=== PATIENT | male | born 1960 | race Caucasian/White ===

== ENCOUNTER → 2018-06-05 07:10 | Outpatient (CLI) | payer OTHER, SELFPAY ==
[2018-06-05 08:23] LABS: Add Manual Diff / Slide Review NO; Basophils Percent Auto 0.5 % (0-2); Eosinophils Percent Auto 1.4 % (2-4); Hematocrit 46.4 % (41-53); Lymphocytes Percent Auto 31.4 % (25-40); Mean Corpuscular HGB Conc 34.4 % (30-36); Mean Corpuscular Hemoglobin 33.9 PG (26-34); Mean Corpuscular Volume 98.4 fL (80-100); Monocytes Percent Auto 10.3 % (3-14); Neutrophils Absolute Auto 2800 /uL (1500-7000); Neutrophils Percent Auto 56.4 % (50-75); Platelet Count 117 X10^3/uL (150-400); Red Blood Cell Count 4.71 X10^6/uL (4.5-5.9); Red Cell Distribution Width 12.7 % (11.6-14.8)
[2018-06-05 08:29] LABS: Alanine Aminotransferase 44 IU/L (21-72); Albumin 4.3 g/dL (3.5-5.0); Albumin Globulin Ratio 1.7 (1.0-2.8); Alkaline Phosphatase 51 U/L (38-126); Aspartate Aminotransferase 17 IU/L (17-59); Bilirubin Total 0.5 mg/dL (0.2-1.3); Blood Urea Nitrogen 28 mg/dL (9-20); Carbon Dioxide 27 mmol/L (22-32); Chloride 105 mmol/L (98-107); Cholesterol 213 mg/dL (140-199); Estimated Glomerular Filt Rate > 60.0 mL/min (>60); Globulin 2.6 g/dL (1.7-4.1); Glucose 97 mg/dL (70-100); HDL Cholesterol 45 mg/dL (40-60); HEMOLYSIS 24 (0-50); LDL Cholesterol Calculated 136 mg/dL (<100); Potassium 4.5 mmol/L (3.4-5.1); Sodium 146 mmol/L (137-145); Total Protein 6.9 g/dL (6.3-8.2); Triglycerides 159 mg/dL (35-150)
[2018-06-05 09:12] LABS: Thyroid Stimulating Hormone 2.74 uIU/mL (0.47-4.68)
== END ==
PROVIDERS: PCP Family Medicine; Visit Provider Family Medicine
DX: E78.5 Hyperlipidemia, unspecified (principal); I10 Essential (primary) hypertension
CPT/HCPCS: 36415; 80053; 80061; 84153; 84443; 85025

== ENCOUNTER → 2018-07-10 08:10 | Outpatient (CLI) | payer OTHER, SELFPAY ==
--- NOTE | 2018-07-10 09:24 | PM.TREADMILL ---
Cardiac Stress Test Report Referral & Results Date Patient Seen: 07/10/18 Requesting provider: Michele Regan Indication: Strong family history Rest ECG: Unremarkable Procedure Note: Today following both written and verbal informed consent, the patient was exercised according to a standard Nehemias protocol. The patient exercised for a total of 12 min 34 sec achieving a maximum heart rate of 144. Patient's maximum systolic blood pressure was 220 . This was an estimated 12.8 MET's. With exercise patient did have nonspecific ST-T segment changes primarily upsloping ST segment drooping or minimal depression in inferior and lateral leads that rapidly resolved (in less than 40 sec) with cessation of exercise the suggesting nonischemic nature to these changes Rare PVCs were identified Normal heart rate response to exercise Patient was somewhat hypertensive throughout Functional aerobic impairment was off scale but estimated-40% on the active scale Impression: Nonspecific ST changes not likely to be ischemic. I would interpret this as a normal exam especially given that patient's exercise capacity is 140% of normal. Worse case , this would be an extremely low risk study. He however is hypertensive and consideration for addressing this separately should be made As always, clinical correlation suggested Please note: Actual ECG tracings can be found in the PACS system.
== END ==
PROVIDERS: Family Provider Family Medicine; PCP Family Medicine; Visit Provider Family Medicine
DX: I10 Essential (primary) hypertension (principal); Z82.49 Family history of ischemic heart disease and other diseases of the circulatory system
CPT/HCPCS: 93016; 93017; 93018

== ENCOUNTER 2018-12-15 13:27 | Emergency (ER) | payer OTHER, SELFPAY ==
[2018-12-15 13:36] VITALS: BP 170/80; PULSE 85; RESP 18; TEMP 37.1; O2SAT 96; BMI 29.7
--- NOTE | 2018-12-15 13:40 | ED.BACK ---
HPI - Back Pain/Injury <AMARI Franco - Last Filed: 12/15/18 20:53> General Chief Complaint: Back Pain/Injury Stated Complaint: THINKS HE HAS KIDNEY STONES Time Seen by Provider: 12/15/18 13:30 Source: patient Mode of arrival: ambulatory Limitations: no limitations History of Present Illness HPI Narrative: 58-year-old male presents emergency department today complaining of constant 4/10 a stabbing right sided back pain that radiates to his right groin, down to his right testicle, and down his hip. States pain started 1 week ago and now has progressively worsened and now is consistent. Associated right hip numbness, nausea, and night sweats. States movement does not affect pain, he has tried ibuprofen and Tylenol and has had no relief. Denies headaches, vision changes, dizziness, syncope, chest pain, shortness of breath, vomiting, blood in the urine, penile discharge, or sore changes. Related Data Previous Rx's Medication Instructions Recorded pravastatin 10 mg tablet 10 mg PO DAILY #90 tab 06/17/18 sildenafil (antihypertensive) 20 20 mg PO DAILY #100 tab 06/17/18 mg tablet Allergies Allergy/AdvReac Type Severity Reaction Status Date / Time No Known Drug Allergies Allergy Verified 12/16/18 10:58 Review of Systems <AMARI Franco - Last Filed: 12/15/18 20:53> Review of Systems REVIEW OF SYSTEMS: GENERAL: Denies fever. HENT: No head trauma, hearing loss or sore throat. EYES: No loss of vision, double vision, eye pain, or irritation. CARDIOVASCULAR: No chest pain or syncope. RESPIRATORY: No shortness of breath or cough. GASTROINTESTINAL: Complains of right groin pain, see HPI. GENITOURINARY: Complains of right flank pain, with HPI. MUSCULOSKELETAL: No pain, weakness, or deformities. Complains of right leg pain HPI. INTEGUMENTARY: No rash, lesions, or pruritus. NEURO: No tingling, memory loss, or confusion. Complains of numbness to right side of his leg, see HPI. PSYCH: No behavior or mood changes. PFSH <AMARI Franco - Last Filed: 12/15/18 20:53> Medical History Hearing deficit (Chronic) Surgical History Anesthesia (Resolved) Status post knee surgery (~2005) Status post knee surgery (~2011) Family History Father Age: 85 Heart disease Social History Smoking Status: Never smoker Family History Father Age: 85 Heart disease Social History Smoking Status: Never smoker Exam <AMARI Franco - Last Filed: 12/15/18 20:53> Initial Vital Signs Initial Vital Signs: Vital Signs Temperature 98.7 F 12/15/18 13:36 Pulse Rate 85 12/15/18 13:36 Respiratory Rate 18 12/15/18 13:36 Blood Pressure 170/80 H 12/15/18 13:36 Pulse Oximetry 96 12/15/18 13:36 PHYSICAL EXAMINATION: GENERAL: Well groomed, alert, and cooperative. Answers questions promptly and appropriately. Vital signs noted. HENT: Normocephalic, atraumatic. EYES: Conjunctiva pink, sclera white, no periorbital swelling. CHEST: Normal to inspection and without deformities. CARDIOVASCULAR: S1 and S2 sounds normal. Regular rate and rhythm, no murmurs, clicks, or bruits. No pedal edema. RESPIRATORY: Normal respiratory rate, trachea midline, airway patent. No stridor, nasal flaring or accessory muscle use. Lungs are clear in all calles without wheeze, rhonchi, or crackles. GASTROINTESTINAL: Bowel sounds normoactive. Abdomen is soft and non-tender. No organomegaly. : No flank tenderness to palpation, no tenderness to palpation of right groin. No rashes or swelling. MUSCULOSKELETAL: Normal gait and coordination. Equal tone and mass bilaterally. No tenderness to palpation of right hip or leg. Straight leg test did not increased pain. Slight decrease to light sensation over right hip and buttocks. EXTREMITIES: CMS intact. Moves all extremities, lower extremities equal in strength bilaterally. SKIN: Warm, dry, soft, appropriate color for ethnicity. No lesions, rashes, or wounds. NEURO: Alert and Oriented X 3. Good coordination. No ataxia, or sensory deficits, or cognitive issues. PSYCH: Appropriate affect and mood. <Matilde Alvarenga DO - Last Filed: 12/17/18 07:52> Initial Vital Signs Initial Vital Signs: Vital Signs Temperature 98.7 F 12/15/18 13:36 Pulse Rate 85 12/15/18 13:36 Respiratory Rate 18 12/15/18 13:36 Blood Pressure 170/80 H 12/15/18 13:36 Pulse Oximetry 96 12/15/18 13:36 Course <AMARI Franco - Last Filed: 12/15/18 20:53> Course Narrative: Spoke with patient about options to try a steroid pack to decrease inflammation as his pain may likely be caused by sciatic, patient opted not to have this prescription filled. Orders Ordered: Discontinued Medications Ketorolac Tromethamine (Toradol) 30 mg IM NOW ONE Stop: 12/15/18 15:35 Last Admin: 12/15/18 16:12 Dose: 30 mg Reevaluation(s) Reevaluation #1: Patient notes slight decrease in pain with Toradol. Consultations Consultation #1: Case extensively discussed with Dr. Alvarenga. Vital Signs - 8 hr 12/15/18 13:36 12/15/18 16:15 Temperature 98.7 F Pulse Rate 85 58 L Respiratory Rate 18 16 Blood Pressure 170/80 H Blood Pressure [Right Arm] 149/86 H Pulse Oximetry 96 98 <Matilde Alvarenga DO - Last Filed: 12/17/18 07:52> Orders Ordered: Discontinued Medications Ketorolac Tromethamine (Toradol) 30 mg IM NOW ONE Stop: 12/15/18 15:35 Last Admin: 12/15/18 16:12 Dose: 30 mg Vital Signs - 8 hr 12/15/18 13:36 12/15/18 16:15 Temperature 98.7 F Pulse Rate 85 58 L Respiratory Rate 18 16 Blood Pressure 170/80 H Blood Pressure [Right Arm] 149/86 H Pulse Oximetry 96 98 MDM - Back Pain/Injury <AMARI Franco - Last Filed: 12/15/18 20:53> Medical Records Attestation: I reviewed the patient's medical records. Lab Data Attestation: I reviewed the patient's lab results. Result diagrams: 12/15/18 13:40 12/15/18 13:40 Lab Results 12/15/18 12/15/18 12/15/18 Range/Units 13:40 13:40 15:05 WBC 5.7 (4.5-11.0) X10^3/uL RBC 5.00 (4.5-5.9) X10^6/uL Hgb 17.1 (13.5-17.5) g/dL Hct 49.0 (41-53) % MCV 97.9 (80-100) fL MCH 34.2 H (26-34) PG MCHC 35.0 (30-36) % RDW 13.0 (11.6-14.8) % Plt Count 114 L (150-400) X10^3/uL Neut % (Auto) 67.2 (50-75) % Lymph % (Auto) 24.2 L (25-40) % [place] % (Auto) 7.2 (3-14) % Eos % (Auto) 1.0 L (2-4) % Baso % (Auto) 0.4 (0-2) % Neut # (Auto) 3800 (7690-8881) /uL Lymph # (Auto) 1400 (1611-0611) /uL [place] # (Auto) 400 (0-900) /uL Eos # (Auto) 100 (0-450) /uL Baso # (Auto) 0 (0-100) /uL Sodium 142 (137-145) mmol/L Potassium 3.9 (3.4-5.1) mmol/L Chloride 104 (98-107) mmol/L Carbon Dioxide 27 (22-32) mmol/L BUN 13 (9-20) mg/dL Creatinine 0.90 (0.66-1.25) mg/dL Estimated GFR > 60.0 (>60) mL/min BUN/Creatinine Ratio 14.4 (6-22) Glucose 120 H (80-110) mg/dL Calcium 9.7 (8.4-10.2) mg/dL Total Bilirubin 0.9 (0.2-1.3) mg/dL AST 19 (17-59) IU/L ALT 60 (21-72) IU/L Alkaline Phosphatase 58 (38-126) U/L Total Protein 7.7 (6.3-8.2) g/dL Albumin 4.8 (3.5-5.0) g/dL Globulin 2.9 (1.7-4.1) g/dL Albumin/Globulin Ratio 1.7 (1.0-2.8) Lipase 113 (23-300) U/L Ur Chlamydia DNA (PCR) Not detected N gonorrhoeae DNA (PCR) Not detected Urine Dip Bedside Urine Glucose Negative Bedside Urine Bilirubin - Negative Bedside Urine Ketone - Negative Urine Specific Coleman 1.015 Bedside Urine Occult Blood - Negative Bedside Urine pH 6.0 Bedside Urine Protein - Negative Bedside Urine Urobilinogen - Negative Bedside Urine Nitrite - Negative Bedside Urine Leukocytes - Negative Esterase Imaging Data KUB CT: Radiologist's impression: [address] [id number] [address] Scan Report Signed Patient: Anmol Eastman LMR#: [id number] : 9Acct:[id number] Age/Sex: 58 / MDate of Service: 12/15/18 Loc: ED Accession Number: [id number] Procedure: CT kidney ureter bladder (KUB) Ordering Provider: Zainab Lund PROCEDURE: CT KIDNEY URETER BLADDER (KUB) INDICATIONS: Right groin flank pain x1 week TECHNIQUE: Noncontrast 5 mm thick sections acquired from the diaphragms to the symphysis. 5 mm thick coronal and sagittal reformats were then performed. For radiation dose reduction, the following was used: automated exposure control, adjustment of mA and/or kV according to patient size. COMPARISON: None. FINDINGS: Image quality: Excellent. Lung bases: Lung bases are clear. Heart size is normal. Urinary system: Both kidneys are normal in size. No kidney stones. No hydronephrosis or perinephric fat stranding. Both ureters appear non-dilated throughout their expected courses. Bladder wall thickness is normal; no calcified bladder stones. Other solid organs: Liver is normal in size. Gallbladder is partially collapsed at the time of this study. Pancreas is normal in contours. Spleen is normal in size. No adrenal nodules. Peritoneum and bowel: Unenhanced bowel loops demonstrate normal wall thickness and caliber. No free fluid or air. Incidental note is made of a normal-appearing appendix. Diverticulosis is seen, without findings of active diverticulitis. Nodes and vessels: No retroperitoneal or mesenteric adenopathy by size criteria. Aorta and inferior vena cava are normal in caliber. Abdominal wall: No ventral hernias. Pelvis: No free pelvic fluid. No inguinal adenopathy. Patulous bilateral inguinal canals are seen. Bones: Remote, healed right posterior rib fractures are seen. No suspicious bony lesions. No vertebral body compression fractures. Degenerative changes are seen, which are most prominent at the L4-L5 level. IMPRESSION: No stones or hydronephrosis can be seen. Incidental note is made of: Diverticulosis is seen, without findings of active diverticulitis. Normal appendix Focal L4-L5 degenerative change Patulous bilateral inguinal canals Dictated by: Shaun Grant M.D. on 12/15/2018 at 13:01 Approved by: Shaun Grant M.D. on 12/15/2018 at 13:03 [facility] Narrative Medical decision making narrative: I suspect his pain is due to sciatica due to location of pain starting in the back and radiating to his right buttock, complains of right hip numbness, incidental finding of L4 and L5 degenerative changes, and negative laboratory workup. Less likely kidney stone due to negative KUB and negative urinary analysis. Less likely acute infection due to lack of fever, normal white blood cell count, no acute findings on exam such as abdominal tenderness. Less likely testicle torsion due to lack of testicle swelling and extreme pain, less likely prostatitis due to lack of fever and bacteria present in the urine. Strict return precautions discussed and follow-up instructions given. <Matilde Alvarenga, - Last Filed: 12/17/18 07:52> Lab Data Lab Results 12/15/18 12/15/18 12/15/18 Range/Units 13:40 13:40 15:05 WBC 5.7 (4.5-11.0) X10^3/uL RBC 5.00 (4.5-5.9) X10^6/uL Hgb 17.1 (13.5-17.5) g/dL Hct 49.0 (41-53) % MCV 97.9 (80-100) fL MCH 34.2 H (26-34) PG MCHC 35.0 (30-36) % RDW 13.0 (11.6-14.8) % Plt Count 114 L (150-400) X10^3/uL Neut % (Auto) 67.2 (50-75) % Lymph % (Auto) 24.2 L (25-40) % [place] % (Auto) 7.2 (3-14) % Eos % (Auto) 1.0 L (2-4) % Baso % (Auto) 0.4 (0-2) % Neut # (Auto) 3800 (9964-9145) /uL Lymph # (Auto) 1400 (6091-3861) /uL [place] # (Auto) 400 (0-900) /uL Eos # (Auto) 100 (0-450) /uL Baso # (Auto) 0 (0-100) /uL Sodium 142 (137-145) mmol/L Potassium 3.9 (3.4-5.1) mmol/L Chloride 104 (98-107) mmol/L Carbon Dioxide 27 (22-32) mmol/L BUN 13 (9-20) mg/dL Creatinine 0.90 (0.66-1.25) mg/dL Estimated GFR > 60.0 (>60) mL/min BUN/Creatinine Ratio 14.4 (6-22) Glucose 120 H (80-110) mg/dL Calcium 9.7 (8.4-10.2) mg/dL Total Bilirubin 0.9 (0.2-1.3) mg/dL AST 19 (17-59) IU/L ALT 60 (21-72) IU/L Alkaline Phosphatase 58 (38-126) U/L Total Protein 7.7 (6.3-8.2) g/dL Albumin 4.8 (3.5-5.0) g/dL Globulin 2.9 (1.7-4.1) g/dL Albumin/Globulin Ratio 1.7 (1.0-2.8) Lipase 113 (23-300) U/L Ur Chlamydia DNA (PCR) Not detected N gonorrhoeae DNA (PCR) Not detected Urine Dip Bedside Urine Glucose Negative Bedside Urine Bilirubin - Negative Bedside Urine Ketone - Negative Urine Specific Coleman 1.015 Bedside Urine Occult Blood - Negative Bedside Urine pH 6.0 Bedside Urine Protein - Negative Bedside Urine Urobilinogen - Negative Bedside Urine Nitrite - Negative Bedside Urine Leukocytes - Negative Esterase Discharge Plan Departure Patient Disposition: Home Clinical Impression: Acute flank pain Sciatica Qualifiers: Laterality: right Qualified Code(s): M54.31 - Sciatica, right side Discharge Date/Time: 12/15/18 16:38 Interventions: ED Discharge Assessment Last Done: 12/15/18 16:38 Instructions: DI for Sciatica Activity Restrictions/Additional Instructions: Thank you for entrusting me with your care today. As discussed, your blood work and CT scan are negative for any acute findings. However, incidentally we found that your platelet count was slightly decreased, and you do have diverticulosis, these are not concerning at this time but something to follow up on later if problems arise. It is possible that your pain may be caused by a pinched nerve or sciatica. I recommend following up with your primary care provider in a few days to discuss further testing if needed. Please return to the emergency department if he develops chest pain, shortness of breath, high fevers, uncontrollable vomiting, abdominal pain, swelling or testicles, or syncope. Prescriptions: No Action pravastatin 10 mg tablet 10 mg PO DAILY Qty: 90 RF: 3 sildenafil (antihypertensive) 20 mg tablet 20 mg PO DAILY Qty: 100 RF: 8 Referrals: Michele Regan MD [Primary Care Provider] - <Matilde Alvarenga DO - Last Filed: 12/17/18 07:52> Cosign ED Attending Pauloature Attestation: I was immediately available in the department for consultation. Patient case initially was concerning for kidney based on patient's description of pain coming from the right flank and radiating towards the hip and down into the testicle. CT, lab imaging and urine testing do not show any signs of stone. Patient also had some complaint of numbness just over the hip region. Additional imaging shows some degenerative changes but no acute findings. Suspect patient may be having more of a sciatica type pain. This documentation has been reviewed and I agree with assessment and plan. Supervised by Matilde Alvarenga DO
[2018-12-15 13:46] LABS: Add Manual Diff / Slide Review NO; Basophils Absolute Auto 0 /uL (0-100); Basophils Percent Auto 0.4 % (0-2); Eosinophils Absolute Auto 100 /uL (0-450); Hemoglobin 17.1 g/dL (13.5-17.5); Lymphocytes Absolute Auto 1400 /uL (1100-4500); Lymphocytes Percent Auto 24.2 % (25-40); Mean Corpuscular Hemoglobin 34.2 PG (26-34); Mean Corpuscular Volume 97.9 fL (80-100); Monocytes Absolute Auto 400 /uL (0-900); Monocytes Percent Auto 7.2 % (3-14); Neutrophils Absolute Auto 3800 /uL (1500-7000); Neutrophils Percent Auto 67.2 % (50-75); Platelet Count 114 X10^3/uL (150-400); White Blood Cell Count 5.7 X10^3/uL (4.5-11.0)
--- NOTE | 2018-12-15 13:46 | ED_ITS ---
HPI - Back Pain/Injury <AMARI Franco - Last Filed: 12/15/18 20:53> General Chief Complaint: Back Pain/Injury Stated Complaint: THINKS HE HAS KIDNEY STONES Time Seen by Provider: 12/15/18 13:30 Source: patient Mode of arrival: ambulatory Limitations: no limitations History of Present Illness HPI Narrative: 58-year-old male presents emergency department today complaining of constant 4/10 a stabbing right sided back pain that radiates to his right groin, down to his right testicle, and down his hip. States pain started 1 week ago and now has progressively worsened and now is consistent. Associated right hip numbness, nausea, and night sweats. States movement does not affect pain, he has tried ibuprofen and Tylenol and has had no relief. Denies headaches, vision changes, dizziness, syncope, chest pain, shortness of breath, vomiting, blood in the urine, penile discharge, or sore changes. Related Data Previous Rx's Medication Instructions Recorded pravastatin 10 mg tablet 10 mg PO DAILY #90 tab 06/17/18 sildenafil (antihypertensive) 20 20 mg PO DAILY #100 tab 06/17/18 mg tablet Allergies Allergy/AdvReac Type Severity Reaction Status Date / Time No Known Drug Allergies Allergy Verified 12/16/18 10:58 Review of Systems <AMARI Franco - Last Filed: 12/15/18 20:53> Review of Systems REVIEW OF SYSTEMS: GENERAL: Denies fever. HENT: No head trauma, hearing loss or sore throat. EYES: No loss of vision, double vision, eye pain, or irritation. CARDIOVASCULAR: No chest pain or syncope. RESPIRATORY: No shortness of breath or cough. GASTROINTESTINAL: Complains of right groin pain, see HPI. GENITOURINARY: Complains of right flank pain, with HPI. MUSCULOSKELETAL: No pain, weakness, or deformities. Complains of right leg pain HPI. INTEGUMENTARY: No rash, lesions, or pruritus. NEURO: No tingling, memory loss, or confusion. Complains of numbness to right side of his leg, see HPI. PSYCH: No behavior or mood changes. PFSH <AMARI Franco - Last Filed: 12/15/18 20:53> Medical History Hearing deficit (Chronic) Surgical History Anesthesia (Resolved) Status post knee surgery (~2005) Status post knee surgery (~2011) Family History Father Age: 85 Heart disease Social History Smoking Status: Never smoker Family History Father Age: 85 Heart disease Social History Smoking Status: Never smoker Exam <AMARI Franco - Last Filed: 12/15/18 20:53> Initial Vital Signs Initial Vital Signs: Vital Signs Temperature 98.7 F 12/15/18 13:36 Pulse Rate 85 12/15/18 13:36 Respiratory Rate 18 12/15/18 13:36 Blood Pressure 170/80 H 12/15/18 13:36 Pulse Oximetry 96 12/15/18 13:36 PHYSICAL EXAMINATION: GENERAL: Well groomed, alert, and cooperative. Answers questions promptly and appropriately. Vital signs noted. HENT: Normocephalic, atraumatic. EYES: Conjunctiva pink, sclera white, no periorbital swelling. CHEST: Normal to inspection and without deformities. CARDIOVASCULAR: S1 and S2 sounds normal. Regular rate and rhythm, no murmurs, c licks, or bruits. No pedal edema. RESPIRATORY: Normal respiratory rate, trachea midline, airway patent. No stridor, nasal flaring or accessory muscle use. Lungs are clear in all calles without wheeze, rhonchi, or crackles. GASTROINTESTINAL: Bowel sounds normoactive. Abdomen is soft and non-tender. No organomegaly. : No flank tenderness to palpation, no tenderness to palpation of right g roin. No rashes or swelling. MUSCULOSKELETAL: Normal gait and coordination. Equal tone and mass bilaterally. No tenderness to palpation of right hip or leg. Straight leg test did not increased pain. Slight decrease to light sensation over right hip and buttocks. EXTREMITIES: CMS intact. Moves all extremities, lower extremities equal in strength bilaterally. SKIN: Warm, dry, soft, appropriate color for ethnicity. No lesions, rashes, or wounds. NEURO: Alert and Oriented X 3. Good coordination. No ataxia, or sensory deficits, or cognitive issues. PSYCH: Appropriate affect and mood. <Matilde Alvarenga DO - Last Filed: 12/17/18 07:52> Initial Vital Signs Initial Vital Signs: Vital Signs Temperature 98.7 F 12/15/18 13:36 Pulse Rate 85 12/15/18 13:36 Respiratory Rate 18 12/15/18 13:36 Blood Pressure 170/80 H 12/15/18 13:36 Pulse Oximetry 96 12/15/18 13:36 Course <AMARI Franco - Last Filed: 12/15/18 20:53> Course Narrative: Spoke with patient about options to try a steroid pack to decrease inflammation as his pain may likely be caused by sciatic, patient opted not to have this prescription filled. Orders Ordered: Discontinued Medications Ketorolac Tromethamine (Toradol) 30 mg IM NOW ONE Stop: 12/15/18 15:35 Last Admin: 12/15/18 16:12 Dose: 30 mg Reevaluation(s) Reevaluation #1: Patient notes slight decrease in pain with Toradol. Consultations Consultation #1: Case extensively discussed with Dr. Alvarenga. Vital Signs - 8 hr 12/15/18 13:36 12/15/18 16:15 Temperature 98.7 F Pulse Rate 85 58 L Respiratory Rate 18 16 Blood Pressure 170/80 H Blood Pressure [Right Arm] 149/86 H Pulse Oximetry 96 98 <Matilde Alvarenga DO - Last Filed: 12/17/18 07:52> Orders Ordered: Discontinued Medications Ketorolac Tromethamine (Toradol) 30 mg IM NOW ONE Stop: 12/15/18 15:35 Last Admin: 12/15/18 16:12 Dose: 30 mg Vital Signs - 8 hr 12/15/18 13:36 12/15/18 16:15 Temperature 98.7 F Pulse Rate 85 58 L Respiratory Rate 18 16 Blood Pressure 170/80 H Blood Pressure [Right Arm] 149/86 H Pulse Oximetry 96 98 MDM - Back Pain/Injury <AMARI Franco - Last Filed: 12/15/18 20:53> Medical Records Attestation: I reviewed the patient's medical records. Lab Data Attestation: I reviewed the patient's lab results. Result diagrams: 12/15/18 13:40 12/15/18 13:40 Lab Results 12/15/18 12/15/18 12/15/18 Range/Units 13:40 13:40 15:05 WBC 5.7 (4.5-11.0) X10^3/uL RBC 5.00 (4.5-5.9) X10^6/uL Hgb 17.1 (13.5-17.5) g/dL Hct 49.0 (41-53) % MCV 97.9 (80-100) fL MCH 34.2 H (26-34) PG MCHC 35.0 (30-36) % RDW 13.0 (11.6-14.8) % Plt Count 114 L (150-400) X10^3/uL Neut % (Auto) 67.2 (50-75) % Lymph % (Auto) 24.2 L (25-40) % Galax % (Auto) 7.2 (3-14) % Eos % (Auto) 1.0 L (2-4) % Baso % (Auto) 0.4 (0-2) % Neut # (Auto) 3800 (0771-3004) /uL Lymph # (Auto) 1400 (2689-2131) /uL Galax # (Auto) 400 (0-900) /uL Eos # (Auto) 100 (0-450) /uL Baso # (Auto) 0 (0-100) /uL Sodium 142 (137-145) mmol/L Potassium 3.9 (3.4-5.1) mmol/L Chloride 104 (98-107) mmol/L Carbon Dioxide 27 (22-32) mmol/L BUN 13 (9-20) mg/dL Creatinine 0.90 (0.66-1.25) mg/dL Estimated GFR > 60.0 (>60) mL/min BUN/Creatinine Ratio 14.4 (6-22) Glucose 120 H (80-110) mg/dL Calcium 9.7 (8.4-10.2) mg/dL Total Bilirubin 0.9 (0.2-1.3) mg/dL AST 19 (17-59) IU/L ALT 60 (21-72) IU/L Alkaline Phosphatase 58 (38-126) U/L Total Protein 7.7 (6.3-8.2) g/dL Albumin 4.8 (3.5-5.0) g/dL Globulin 2.9 (1.7-4.1) g/dL Albumin/Globulin Ratio 1.7 (1.0-2.8) Lipase 113 (23-300) U/L Ur Chlamydia DNA (PCR) Not detected N gonorrhoeae DNA (PCR) Not detected Urine Dip Bedside Urine Glucose Negative Bedside Urine Bilirubin - Negative Bedside Urine Ketone - Negative Urine Specific [place] 1.015 Bedside Urine Occult Blood - Negative Bedside Urine pH 6.0 Bedside Urine Protein - Negative Bedside Urine Urobilinogen - Negative Bedside Urine Nitrite - Negative Bedside Urine Leukocytes - Negative Esterase Imaging Data KUB CT: Radiologist's impression: [address] [address] [address] Scan Report Signed Patient: Anmol Eastman LMR#: [id number] : 9Acct:[id number] Age/Sex: 58 / MDate of Service: 12/15/18 Loc: ED Accession Number: [id number] Procedure: CT kidney ureter bladder (KUB) Ordering Provider: Zainab Lund PROCEDURE: CT KIDNEY URETER BLADDER (KUB) INDICATIONS: Right groin flank pain x1 week TECHNIQUE: Noncontrast 5 mm thick sections acquired from the diaphragms to the symphysis. 5 mm thick coronal and sagittal reformats were then performed. For radiation dose reduction, the following was used: automated exposure control, adjustment of mA and/or kV according to patient size. COMPARISON: None. FINDINGS: Image quality: Excellent. Lung bases: Lung bases are clear. Heart size is normal. Urinary system: Both kidneys are normal in size. No kidney stones. No hydronephrosis or perinephric fat stranding. Both ureters appear non-dilated throughout their expected courses. Bladder wall thickness is normal; no calcified bladder stones. Other solid organs: Liver is normal in size. Gallbladder is partially collapsed at the time of this study. Pancreas is normal in contours. Spleen is normal in size. No adrenal nodules. Peritoneum and bowel: Unenhanced bowel loops demonstrate normal wall thickness and caliber. No free fluid or air. Incidental note is made of a normal-appearing appendix. Diverticulosis is seen, without findings of active diverticulitis. Nodes and vessels: No retroperitoneal or mesenteric adenopathy by size criteria. Aorta and inferior vena cava are normal in caliber. Abdominal wall: No ventral hernias. Pelvis: No free pelvic fluid. No inguinal adenopathy. Patulous bilateral inguinal canals are seen. Bones: Remote, healed right posterior rib fractures are seen. No suspicious bony lesions. No vertebral body compression fractures. Degenerative changes are seen, which are most prominent at the L4-L5 level. IMPRESSION: No stones or hydronephrosis can be seen. Incidental note is made of: Diverticulosis is seen, without findings of active diverticulitis. Normal appendix Focal L4-L5 degenerative change Patulous bilateral inguinal canals Dictated by: Shaun Grant M.D. on 12/15/2018 at 13:01 Approved by: Shaun Grant M.D. on 12/15/2018 at 13:03 [facility] Narrative Medical decision making narrative: I suspect his pain is due to sciatica due to location of pain starting in the back and radiating to his right buttock, complains of right hip numbness, incidental finding of L4 and L5 degenerative changes, and negative laboratory workup. Less likely kidney stone due to negative KUB and negative urinary analysis. Less likely acute infection due to lack of fever, normal white blood cell count, no acute findings on exam such as abdominal tenderness. Less likely testicle torsion due to lack of testicle swelling and extreme pain, less likely prostatitis due to lack of fever and bacteria present in the urine. Strict return precautions discussed and follow- up instructions given. <Matilde Alvarenga, - Last Filed: 12/17/18 07:52> Lab Data Lab Results 12/15/18 12/15/18 12/15/18 Range/Units 13:40 13:40 15:05 WBC 5.7 (4.5-11.0) X10^3/uL RBC 5.00 (4.5-5.9) X10^6/uL Hgb 17.1 (13.5-17.5) g/dL Hct 49.0 (41-53) % MCV 97.9 (80-100) fL MCH 34.2 H (26-34) PG MCHC 35.0 (30-36) % RDW 13.0 (11.6-14.8) % Plt Count 114 L (150-400) X10^3/uL Neut % (Auto) 67.2 (50-75) % Lymph % (Auto) 24.2 L (25-40) % Galax % (Auto) 7.2 (3-14) % Eos % (Auto) 1.0 L (2-4) % Baso % (Auto) 0.4 (0-2) % Neut # (Auto) 3800 (5583-9898) /uL Lymph # (Auto) 1400 (2294-7399) /uL Galax # (Auto) 400 (0-900) /uL Eos # (Auto) 100 (0-450) /uL Baso # (Auto) 0 (0-100) /uL Sodium 142 (137-145) mmol/L Potassium 3.9 (3.4-5.1) mmol/L Chloride 104 (98-107) mmol/L Carbon Dioxide 27 (22-32) mmol/L BUN 13 (9-20) mg/dL Creatinine 0.90 (0.66-1.25) mg/dL Estimated GFR > 60.0 (>60) mL/min BUN/Creatinine Ratio 14.4 (6-22) Glucose 120 H (80-110) mg/dL Calcium 9.7 (8.4-10.2) mg/dL Total Bilirubin 0.9 (0.2-1.3) mg/dL AST 19 (17-59) IU/L ALT 60 (21-72) IU/L Alkaline Phosphatase 58 (38-126) U/L Total Protein 7.7 (6.3-8.2) g/dL Albumin 4.8 (3.5-5.0) g/dL Globulin 2.9 (1.7-4.1) g/dL Albumin/Globulin Ratio 1.7 (1.0-2.8) Lipase 113 (23-300) U/L Ur Chlamydia DNA (PCR) Not detected N gonorrhoeae DNA (PCR) Not detected Urine Dip Bedside Urine Glucose Negative Bedside Urine Bilirubin - Negative Bedside Urine Ketone - Negative Urine Specific [place] 1.015 Bedside Urine Occult Blood - Negative Bedside Urine pH 6.0 Bedside Urine Protein - Negative Bedside Urine Urobilinogen - Negative Bedside Urine Nitrite - Negative Bedside Urine Leukocytes - Negative Esterase Discharge Plan Departure Patient Disposition: Home Clinical Impression: Acute flank pain Sciatica Qualifiers: Laterality: right Qualified Code(s): M54.31 - Sciatica, right side Discharge Date/Time: 12/15/18 16:38 Interventions: ED Discharge Assessment Last Done: 12/15/18 16:38 Instructions: DI for Sciatica Activity Restrictions/Additional Instructions: Thank you for entrusting me with your care today. As discussed, your blood work and CT scan are negative for any acute findings. However, incidentally we found that your platelet count was slightly decreased, and you do have diverticulosis, these are not concerning at this time but something to follow up on later if problems arise. It is possible that your pain may be caused by a pinched nerve or sciatica. I recommend following up with your primary care provider in a few days to discuss further testing if needed. Please return to the emergency department if he develops chest pain, shortness of breath, high fevers, uncontrollable vomiting, abdominal pain, swelling or testicles, or syncope. Prescriptions: No Action pravastatin 10 mg tablet 10 mg PO DAILY Qty: 90 RF: 3 sildenafil (antihypertensive) 20 mg tablet 20 mg PO DAILY Qty: 100 RF: 8 Referrals: Michele Regan MD [Primary Care Provider] - <Matilde Alvarenga DO - Last Filed: 12/17/18 07:52> Cosign ED Attending Cosangelaature Attestation: I was immediately available in the department for consultation. Patient case initially was concerning for kidney based on patient's description of pain coming from the right flank and radiating towards the hip and down into the testicle. CT, lab imaging and urine testing do not show any signs of stone. Patient also had some complaint of numbness just over the hip region. Additional imaging shows some degenerative changes but no acute findings. Suspect patient may be having more of a sciatica type pain. This documentation has been reviewed and I agree with assessment and plan. Supervised by Matilde Alvarenga DO
--- NOTE | 2018-12-15 13:48 | PC.NURSE ---
Patient is concerned for kidney stone. Denies dysuria, hematura, or any other urinary symptoms. No CVA tenderness noted. Pt states his testicle has been tender as well.
--- NOTE | 2018-12-15 13:53 | DI.CT.S_ITS ---
PROCEDURE: CT KIDNEY URETER BLADDER (KUB) INDICATIONS: Right groin flank pain x1 week TECHNIQUE: Noncontrast 5 mm thick sections acquired from the diaphragms to the symphysis. 5 mm thick coronal and sagittal reformats were then performed. For radiation dose reduction, the following was used: automated exposure control, adjustment of mA and/or kV according to patient size. COMPARISON: None. FINDINGS: Image quality: Excellent. Lung bases: Lung bases are clear. Heart size is normal. Urinary system: Both kidneys are normal in size. No kidney stones. No hydronephrosis or perinephric fat stranding. Both ureters appear non-dilated throughout their expected courses. Bladder wall thickness is normal; no calcified bladder stones. Other solid organs: Liver is normal in size. Gallbladder is partially collapsed at the time of this study. Pancreas is normal in contours. Spleen is normal in size. No adrenal nodules. Peritoneum and bowel: Unenhanced bowel loops demonstrate normal wall thickness and caliber. No free fluid or air. Incidental note is made of a normal-appearing appendix. Diverticulosis is seen, without findings of active diverticulitis. Nodes and vessels: No retroperitoneal or mesenteric adenopathy by size criteria. Aorta and inferior vena cava are normal in caliber. Abdominal wall: No ventral hernias. Pelvis: No free pelvic fluid. No inguinal adenopathy. Patulous bilateral inguinal canals are seen. Bones: Remote, healed right posterior rib fractures are seen. No suspicious bony lesions. No vertebral body compression fractures. Degenerative changes are seen, which are most prominent at the L4-L5 level. IMPRESSION: No stones or hydronephrosis can be seen. Incidental note is made of: Diverticulosis is seen, without findings of active diverticulitis. Normal appendix Focal L4-L5 degenerative change Patulous bilateral inguinal canals Dictated by: Shaun Grant M.D. on 12/15/2018 at 13:01 Approved by: Shaun Grant M.D. on 12/15/2018 at 13:03
[2018-12-15 14:05] LABS: Alanine Aminotransferase 60 IU/L (21-72); Albumin 4.8 g/dL (3.5-5.0); Albumin Globulin Ratio 1.7 (1.0-2.8); Alkaline Phosphatase 58 U/L (38-126); Aspartate Aminotransferase 19 IU/L (17-59); BUN Creatinine Ratio 14.4 (6-22); Bilirubin Total 0.9 mg/dL (0.2-1.3); Blood Urea Nitrogen 13 mg/dL (9-20); Calcium 9.7 mg/dL (8.4-10.2); Carbon Dioxide 27 mmol/L (22-32); Chloride 104 mmol/L (98-107); Estimated Glomerular Filt Rate > 60.0 mL/min (>60); Globulin 2.9 g/dL (1.7-4.1); Glucose 120 mg/dL (80-110); HEMOLYSIS < 15 (0-50); Lipase 113 U/L (23-300); Potassium 3.9 mmol/L (3.4-5.1); Sodium 142 mmol/L (137-145); Total Protein 7.7 g/dL (6.3-8.2)
[2018-12-15] MEDS: KETOROLAC 60 MG/2 ML VIAL 30 MG IM (16:12)
[2018-12-15 16:15] VITALS: BP 149/86; PULSE 58; RESP 16; O2SAT 98
[2018-12-15 16:37] LABS: Urine N gonorrhoeae NOT DETECTED
[2018-12-15 16:47] LABS: Urine Chlamydia NOT DETECTED
== END 2018-12-15 16:38 | disposition home or self-care (01) ==
PROVIDERS: Emergency Provider Nurse Practitioner; Family Provider Family Medicine; PCP Family Medicine
DX: R10.9 Unspecified abdominal pain (principal); M54.31 Sciatica, right side
CPT/HCPCS: 36415; 74176; 80053; 81003; 83690; 85025; 87491; 87591; 96372; 99283; 99284; J1885

== ENCOUNTER → 2018-12-16 11:37 | Outpatient (CLI) | payer OTHER, SELFPAY ==
--- NOTE | 2018-12-16 11:39 | DI.RAD.S_ITS ---
PROCEDURE: XR LUMBAR SPINE 2-3V INDICATIONS: Pain TECHNIQUE: 3 views of the lumbar spine were acquired. COMPARISON: None. FINDINGS: Bones: 5 [id number] vertebrae are present. There is straightening of normal lumbar lordosis. Degenerative endplate changes and bilateral facet arthrosis throughout lumbar spine is seen more prominent at L4-5 and L5-S1 levels. No vertebral body compression fractures. No suspicious bony lesions. Soft tissues: Overlying bowel gas pattern is normal. No suspicious soft tissue calcifications. IMPRESSION: Degenerative disc disease throughout lumbar spine more prominent at L4-5 and L5-S1 levels. No acute compression fracture or spondylolisthesis. Dictated by: Davi Chu M.D. on 12/16/2018 at 13:23 Approved by: Davi Chu M.D. on 12/16/2018 at 13:23
--- NOTE | 2018-12-16 11:39 | DI.RAD.S_ITS ---
PROCEDURE: XR HIP W PEL IF DONE RT 2V INDICATIONS: Pain TECHNIQUE: AP pelvis with lateral view(s) of the right hip(s). COMPARISON: None. FINDINGS: Bones: Symmetric appearing bilateral hip joint osteoarthritic changes are seen with joint space narrowing, subchondral sclerosis and marginal osteophyte formation. No fractures or dislocations. Pelvic ring appears intact. No suspicious bony lesions. Soft tissues: The visualized bowel gas pattern is normal. No suspicious soft tissue calcifications. IMPRESSION: Symmetric appearing bilateral hip joint osteoarthritis. Dictated by: Davi Chu M.D. on 12/16/2018 at 13:22 Approved by: Davi Chu M.D. on 12/16/2018 at 13:23
== END ==
PROVIDERS: PCP Family Medicine; Visit Provider Family Medicine
DX: R10.9 Unspecified abdominal pain (principal); M16.0 Bilateral primary osteoarthritis of hip; M51.36 Other intervertebral disc degeneration, lumbar region; M51.37 Other intervertebral disc degeneration, lumbosacral region
CPT/HCPCS: 72100; 73502

== ENCOUNTER → 2019-03-03 08:08 | Outpatient (CLI) | payer OTHER, SELFPAY ==
[2019-03-03 09:31] LABS: Cholesterol 212 mg/dL (140-199); HDL Cholesterol 48 mg/dL (40-60); LDL Cholesterol Calculated 133 mg/dL (<100); Triglycerides 154 mg/dL (35-150)
== END ==
PROVIDERS: PCP Family Medicine; Visit Provider Family Medicine
DX: I10 Essential (primary) hypertension (principal)
CPT/HCPCS: 36415; 80061

== ENCOUNTER → 2019-05-12 08:03 | Outpatient (CLI) | payer OTHER, SELFPAY ==
[2019-05-12 09:40] LABS: Cholesterol 201 mg/dL (140-199); HDL Cholesterol 42 mg/dL (40-60); LDL Cholesterol Calculated 128 mg/dL (<100); Triglycerides 155 mg/dL (35-150)
== END ==
PROVIDERS: PCP Family Medicine; Visit Provider Family Medicine
DX: E78.5 Hyperlipidemia, unspecified (principal)
CPT/HCPCS: 36415; 80061

== ENCOUNTER → 2020-05-25 08:19 | Outpatient (CLI) | payer OTHER, SELFPAY ==
[2020-05-25 09:22] LABS: Add Manual Diff / Slide Review NO; Basophils Absolute Auto 0 /uL (0-100); Basophils Percent Auto 0.5 % (0-2); Eosinophils Absolute Auto 100 /uL (0-450); Eosinophils Percent Auto 1.6 % (2-4); Hematocrit 45.9 % (41-53); Hemoglobin 15.6 g/dL (13.5-17.5); Lymphocytes Absolute Auto 1300 /uL (1100-4500); Mean Corpuscular HGB Conc 33.9 % (30-36); Mean Corpuscular Volume 100.3 fL (80-100); Monocytes Absolute Auto 400 /uL (0-900); Monocytes Percent Auto 9.6 % (3-14); Neutrophils Absolute Auto 2000 /uL (1500-7000); Neutrophils Percent Auto 53.3 % (50-75); Platelet Count 105 X10^3/uL (150-400); Red Blood Cell Count 4.58 X10^6/uL (4.5-5.9); Red Cell Distribution Width 12.5 % (11.6-14.8); White Blood Cell Count 3.8 X10^3/uL (4.5-11.0)
[2020-05-25 09:38] LABS: Alanine Aminotransferase 45 IU/L (<50); Albumin 4.3 g/dL (3.5-5.0); Alkaline Phosphatase 49 U/L (38-126); Aspartate Aminotransferase 19 IU/L (17-59); BUN Creatinine Ratio 24.5 (6-22); Bilirubin Total 0.6 mg/dL (0.2-1.3); Blood Urea Nitrogen 24 mg/dL (9-20); Calcium 9.3 mg/dL (8.4-10.2); Carbon Dioxide 31 mmol/L (22-32); Chloride 106 mmol/L (98-107); Cholesterol 179 mg/dL (140-199); Estimated Glomerular Filt Rate > 60.0 mL/min (>60); Globulin 2.1 g/dL (1.7-4.1); Glucose 104 mg/dL (80-110); HDL Cholesterol 48 mg/dL (40-60); HEMOLYSIS < 15 (0-50); LDL Cholesterol Calculated 104 mg/dL (<100); Potassium 4.7 mmol/L (3.4-5.1); Sodium 140 mmol/L (137-145); Total Protein 6.4 g/dL (6.3-8.2); Triglycerides 137 mg/dL (35-150)
[2020-05-25 10:02] LABS: Prostate Specific Antigen Scrn 1.11 ng/mL (0.1-4.0)
== END ==
PROVIDERS: PCP Family Medicine; Referring Provider Family Medicine; Visit Provider Family Medicine
DX: E78.5 Hyperlipidemia, unspecified (principal); I10 Essential (primary) hypertension; Z12.5 Encounter for screening for malignant neoplasm of prostate
CPT/HCPCS: 36415; 80053; 80061; 85025; G0103

== ENCOUNTER → 2021-05-30 07:39 | Outpatient (CLI) | payer OTHER, SELFPAY ==
[2021-05-30 08:22] LABS: Add Manual Diff / Slide Review NO; Basophils Absolute Auto 0 /uL (0-100); Basophils Percent Auto 0.4 % (0-2); Eosinophils Absolute Auto 100 /uL (0-450); Eosinophils Percent Auto 1.6 % (2-4); Hematocrit 46.2 % (41-53); Lymphocytes Absolute Auto 1400 /uL (1100-4500); Lymphocytes Percent Auto 35.2 % (25-40); Mean Corpuscular HGB Conc 34.5 % (30-36); Mean Corpuscular Volume 98.4 fL (80-100); Monocytes Absolute Auto 400 /uL (0-900); Neutrophils Absolute Auto 2100 /uL (1500-7000); Neutrophils Percent Auto 52.8 % (50-75); Platelet Count 94 X10^3/uL (150-400); Red Cell Distribution Width 12.6 % (11.6-14.8)
[2021-05-30 08:48] LABS: Creatinine Urine Random 160.8 mg/dL
[2021-05-30 08:55] LABS: Microalbumi Creatinin Ratio Ur 7.4 ug/mg CR (<30); Microalbumin Urine Random 1.2 mg/dL (0-1.6)
[2021-05-30 09:01] LABS: Alanine Aminotransferase 36 IU/L (<50); Albumin 4.3 g/dL (3.5-5.0); Alkaline Phosphatase 51 U/L (38-126); Aspartate Aminotransferase 17 IU/L (17-59); BUN Creatinine Ratio 20.6 (6-22); Bilirubin Total 0.5 mg/dL (0.2-1.3); Blood Urea Nitrogen 21 mg/dL (9-20); Calcium 9.2 mg/dL (8.4-10.2); Carbon Dioxide 30 mmol/L (22-32); Chloride 106 mmol/L (98-107); Cholesterol 179 mg/dL (140-199); Estimated Glomerular Filt Rate > 60.0 mL/min (>60); Globulin 2.2 g/dL (1.7-4.1); Glucose 104 mg/dL (80-110); HDL Cholesterol 46 mg/dL (40-60); HEMOLYSIS < 15 (0-50); LDL Cholesterol Calculated 117 mg/dL (<100); Potassium 4.7 mmol/L (3.4-5.1); Sodium 142 mmol/L (137-145); Total Protein 6.5 g/dL (6.3-8.2); Triglycerides 78 mg/dL (35-150)
[2021-05-30 09:22] LABS: Prostate Specific Antigen Scrn 1.28 ng/mL (0.1-4.0)
== END ==
PROVIDERS: PCP Family Medicine; Referring Provider Family Medicine; Visit Provider Family Medicine
DX: I10 Essential (primary) hypertension (principal); E78.2 Mixed hyperlipidemia; N40.0 Benign prostatic hyperplasia without lower urinary tract symptoms; Z12.5 Encounter for screening for malignant neoplasm of prostate
CPT/HCPCS: 36415; 80053; 80061; 82043; 82570; 85025; G0103

== ENCOUNTER → 2021-07-14 09:34 | Outpatient (CLI) | payer OTHER, SELFPAY ==
--- NOTE | 2021-07-14 09:35 | DI.US.S_ITS ---
PROCEDURE: US ABDOMEN COMPLETE INDICATIONS: Thrombocytopenia TECHNIQUE: Real-time scanning was performed of the abdominal and retroperitoneal organs, with image documentation. COMPARISON: None. FINDINGS: Liver: Liver is normal in size and homogeneous in echotexture. Gallbladder: No findings of gallstones or sludge are seen. The gallbladder wall is not thickened, measuring 3 mm or less. A likely polyp can be seen posteriorly measuring 2.6 mm. No specific pericholecystic fluid is seen. The sonographic Puente sign is negative. Biliary ducts: Intrahepatic bile ducts are non-dilated. Extrahepatic bile duct caliber measures 2.4 mm. Normal is 6-7 mm or less in diameter, or 10 mm or less post-cholecystectomy. Pancreas: Not well seen. Spleen: The spleen is mildly enlarged, measuring 13.4 cm. Kidneys: Kidneys are normal in size and echotexture. Right kidney measures 10.2 cm long; left kidney measures 11.3 cm long. No hydronephrosis or nephrolithiasis. No solid masses. Aorta: Visualized aorta is normal in caliber at less than 3 cm. Iliacs: Proximal common iliac arteries are normal in caliber at less than 2.5 cm. IVC: Intrahepatic inferior vena cava is patent. Miscellaneous: No free abdominal fluid. IMPRESSION: Mild splenomegaly, 13.4 cm. Dictated by: Shaun Grant M.D. on 07/14/2021 at 11:09 Approved by: Shaun Grant M.D. on 07/14/2021 at 11:10
== END ==
PROVIDERS: PCP Family Medicine; Referring Provider Internal Medicine Hematology & Oncology; Visit Provider Internal Medicine Hematology & Oncology
DX: D69.6 Thrombocytopenia, unspecified (principal); R16.1 Splenomegaly, not elsewhere classified
CPT/HCPCS: 76700

== ENCOUNTER → 2022-07-04 07:03 | Outpatient (CLI) | payer OTHER, SELFPAY ==
[2022-07-04 07:33] LABS: Add Manual Diff / Slide Review NO; Basophils Absolute Auto 0 /uL (0-100); Basophils Percent Auto 0.5 % (0-2); Eosinophils Absolute Auto 0 /uL (0-450); Eosinophils Percent Auto 1.4 % (2-4); Hematocrit 46.2 % (41-53); Hemoglobin 15.9 g/dL (13.5-17.5); Lymphocytes Absolute Auto 1300 /uL (1100-4500); Mean Corpuscular HGB Conc 34.4 % (30-36); Mean Corpuscular Hemoglobin 33.9 PG (26-34); Mean Corpuscular Volume 98.5 fL (80-100); Monocytes Absolute Auto 400 /uL (0-900); Monocytes Percent Auto 10.6 % (3-14); Neutrophils Absolute Auto 1600 /uL (1500-7000); Neutrophils Percent Auto 48.5 % (50-75); Platelet Count 109 X10^3/uL (150-400); Red Blood Cell Count 4.69 X10^6/uL (4.5-5.9); Red Cell Distribution Width 12.8 % (11.6-14.8); White Blood Cell Count 3.3 X10^3/uL (4.5-11.0)
[2022-07-04 08:39] LABS: Alanine Aminotransferase 36 IU/L (<50); Albumin 4.1 g/dL (3.5-5.0); Albumin Globulin Ratio 1.6 (1.0-2.8); Alkaline Phosphatase 54 U/L (38-126); Aspartate Aminotransferase 18 IU/L (17-59); Bilirubin Total 0.7 mg/dL (0.2-1.3); Blood Urea Nitrogen 20 mg/dL (9-20); Carbon Dioxide 28 mmol/L (22-32); Chloride 104 mmol/L (98-107); Cholesterol 200 mg/dL (140-199); Estimated Glomerular Filt Rate > 60 mL/min (>60); Globulin 2.5 g/dL (1.7-4.1); Glucose 104 mg/dL (80-110); HDL Cholesterol 44 mg/dL (40-60); HEMOLYSIS < 15 (0-50); LDL Cholesterol Calculated 137 mg/dL (<100); Potassium 4.5 mmol/L (3.4-5.1); Sodium 140 mmol/L (137-145); Total Protein 6.6 g/dL (6.3-8.2); Triglycerides 95 mg/dL (35-150)
[2022-07-04 08:59] LABS: Prostate Specific Antigen 1.44 ng/mL (0.10-4.00)
== END ==
PROVIDERS: PCP Family Medicine; Referring Provider Family Medicine; Visit Provider Family Medicine
DX: D69.6 Thrombocytopenia, unspecified (principal); E78.2 Mixed hyperlipidemia; E78.5 Hyperlipidemia, unspecified; I10 Essential (primary) hypertension; N40.1 Benign prostatic hyperplasia with lower urinary tract symptoms; R39.14 Feeling of incomplete bladder emptying
CPT/HCPCS: 36415; 80053; 80061; 84153; 85025

== ENCOUNTER 2022-08-23 07:54 | Day surgery (SDC) | payer OTHER, SELFPAY ==
--- NOTE | 2022-08-23 | PATH_ITS ---
[facility] Accession Number: [id number] No. of containers..01 Tissue . 01 Material submitted: . colon - ASCENDING COLON BIOPSY . 01 Diagnosis: Ascending Colon, Biopsy: Tubular adenoma. MRV 08/28/2022 1403 Local . 01 Electronically signed: . Hernando York MD, PhD, Pathologist NPI- [id number] . 01 Gross description: . ASCENDING COLON BIOPSY: Received in formalin is 1 fragment(s) of amaya, soft tissue measuring 1.0 x 0.0.4 x 0.2 cm submitted entirely in 1 cassette(s) /SIOMARA 08/24/2022 0141 Local . 01 Pathologist provided ICD-10: D12.2 . 01 CPT . 736116 Specimen Comment: A courtesy copy of this report has been sent to [phone] Performed at: 01 [facility] [address] [place] [address], [place], [place] [id number] MD Anmol Toribio MD Phone: [phone]
[2022-08-23 08:09] VITALS: BMI 30.3
[2022-08-23 08:13] VITALS: BP 150/89; PULSE 70; RESP 12; TEMP 36.1; O2SAT 99
[2022-08-23] MEDS: LACTATED RINGERS 1,000 ML 42 ML IV (08:16)
--- NOTE | 2022-08-23 08:51 | PM.HP.1 ---
History of Present Illness History of Present Illness Date Patient Seen: 08/23/22 Time Patient Seen: 08:51 Chief complaint: Screening Colonoscopy Narrative: Fletcher is a 62-year-old man who is here for colonoscopy. He had a colonoscopy 10 years ago that was normal. No family history of colon cancer. Patient History Medical History (Updated 08/23/22 @ 08:52 by Jeet Looney MD) Benign prostatic hyperplasia Hearing deficit Hearing loss (~2009) Hyperlipidemia Obstructive sleep apnea Tinnitus (~2009) Surgical History (Updated 07/10/21 @ 15:19 by Jenny Guillen MD) Anesthesia Status post knee surgery (~2005) Status post knee surgery (~2011) Family & Social History Family History (Updated 04/25/21 @ 21:05 by Diane Loera) Father Age: 89 Heart disease Mother Mental health problem Social History: household members spouse Tobacco & Substance use: Smoking Status Never smoker alcohol intake current alcohol intake frequency a few times a week Substance Use Type does not use Meds Home Medications and Allergies Home Medications Medication Instructions Recorded Confirmed Type tamsulosin 0.4 mg capsule See Rx Instructions .Route 04/17/22 08/23/22 Rx .COMPLEX #90 caps pravastatin 20 mg tablet 20 mg PO DAILY #90 tabs 08/13/22 08/23/22 Rx Allergies Allergy/AdvReac Type Severity Reaction Status Date / Time No Known Drug Allergies Allergy Verified 08/23/22 08:07 Exam Vital Signs (past 8 hours): - 08/23/22 08:13 Temperature 97.0 F L Pulse Rate 70 Respiratory Rate 12 Blood Pressure 150/89 H Pulse Oximetry 99 Oxygen Delivery Method Room Air Oxygen Delivery Method Room Air Const General: healthy appearing Assessment & Plan Assessment and plan (1) Colon cancer screening: Status: Acute Plan We reviewed the risks and benefits of colonoscopy for colon cancer screening and he would like to proceed. Time Spent With Patient Critical Care time: I spent a total of [] minutes of critical care time on this patient's care today; this time is exclusive of procedural time.
--- NOTE | 2022-08-23 09:21 | PM.OP.COLON ---
Operative Date/Time/Diagnoses Date of procedure: 08/23/22 Time of procedure: 09:21 Pre-op diagnosis: Colon cancer screening Post-op diagnosis: same Procedure & Clinicians Study performed: Colonoscopy Same procedure as scheduled: Yes Surgeon: Jeet Looney Procedure Notes Procedure in detail: Surgeon: Jeet Looney MD Anesthesia: Za Walden [employer] Procedure: The patient was brought to the endoscopy suite, placed in left lateral decubitus position. The patient was connected to monitoring devices. A time-out was performed. Sedation was administered. Once the patient was adequately sedated, a digital rectal exam was performed and was normal. The scope was then inserted and advanced to the cecum where the appendiceal orifice was identified and photographed. The scope was then slowly withdrawn over greater than 6 minutes. The mucosa was thoroughly inspected. There was a 5 mm polyp in the ascending colon with a cold snare. No other abnormalities were noted. The scope was retroflexed in the rectum. No other abnormalities were noted. The scope was straightened and removed. The patient was awakened and brought to recovery. Scope withdrawal time: 8 minutes Sedation time: 15 minutes EBL: 2 mL Findings: 5 mm polyp in the ascending colon Post-procedure Disposition: PACU
[2022-08-23 09:23] VITALS: BP 99/70; PULSE 65; RESP 12; TEMP 36.1; O2SAT 96
[2022-08-23 09:28] VITALS: BP 101/72; PULSE 62; RESP 14; O2SAT 94
[2022-08-23 09:33] VITALS: BP 110/81; PULSE 69; RESP 16; O2SAT 96
[2022-08-23 09:36] VITALS: BP 110/81; PULSE 65; RESP 16; O2SAT 96
== END 2022-08-23 09:43 | disposition home or self-care (01) ==
PROVIDERS: PCP Family Medicine; Referring Provider Surgery; Visit Provider Surgery
PROC: 0DJD8ZZ Inspection of Lower Intestinal Tract, Via Natural or Artificial Opening Endoscopic (ICD-10-PCS; CPT 45378; principal; 2022-08-23 09:00)
DX: Z12.11 Encounter for screening for malignant neoplasm of colon (principal); D12.2 Benign neoplasm of ascending colon
CPT/HCPCS: 45385; J2704

== ENCOUNTER → 2023-06-28 10:30 | Outpatient (CLI) | payer OTHER, SELFPAY ==
[2023-06-28 11:48] LABS: COVID-19 CEPHEID 4-PLEX PCR Negative (Negative); Influenza A - CEPHEID Flu A POSITIVE (NEGATIVE); Influenza B - CEPHEID Flu B NEGATIVE (NEGATIVE); Respiratory Syncytial Virus Negative (Negative)
== END ==
PROVIDERS: PCP Family Medicine; Visit Provider Family Medicine
DX: R05.9 Cough, unspecified (principal)
CPT/HCPCS: 0241U

== ENCOUNTER → 2023-10-29 07:33 | Outpatient (CLI) | payer OTHER, SELFPAY ==
[2023-10-29 08:31] LABS: Add Manual Diff / Slide Review NO; Basophils Absolute Auto 0 /uL (0-100); Basophils Percent Auto 0.4 % (0-2); Eosinophils Absolute Auto 0 /uL (0-450); Hematocrit 45.5 % (41-53); Hemoglobin 15.8 g/dL (13.5-17.5); Lymphocytes Absolute Auto 1400 /uL (1100-4500); Lymphocytes Percent Auto 41.9 % (25-40); Mean Corpuscular HGB Conc 34.7 % (30-36); Mean Corpuscular Hemoglobin 34.5 PG (26-34); Mean Corpuscular Volume 99.5 fL (80-100); Monocytes Absolute Auto 400 /uL (0-900); Monocytes Percent Auto 10.8 % (3-14); Neutrophils Absolute Auto 1500 /uL (1500-7000); Neutrophils Percent Auto 45.9 % (50-75); Platelet Count 95 X10^3/uL (150-400); Red Blood Cell Count 4.57 X10^6/uL (4.5-5.9); Red Cell Distribution Width 13.2 % (11.6-14.8); White Blood Cell Count 3.3 X10^3/uL (4.5-11.0)
[2023-10-29 08:49] LABS: Hemoglobin A1C% w Est Avg Glu 5.3 % (4.0-6.0)
[2023-10-29 09:11] LABS: Alanine Aminotransferase 45 IU/L (<50); Albumin 4.5 g/dL (3.5-5.0); Albumin Globulin Ratio 2.3 (1.0-2.8); Alkaline Phosphatase 57 U/L (38-126); Aspartate Aminotransferase 22 IU/L (17-59); BUN Creatinine Ratio 22.1 (6-22); Bilirubin Total 1.1 mg/dL (0.2-1.3); Blood Urea Nitrogen 21 mg/dL (9-20); Calcium 8.8 mg/dL (8.4-10.2); Carbon Dioxide 26 mmol/L (22-32); Chloride 107 mmol/L (98-107); Cholesterol 181 mg/dL (140-199); Estimated Glomerular Filt Rate > 60 mL/min (>60); Glucose 109 mg/dL (80-110); HDL Cholesterol 48 mg/dL (40-60); HEMOLYSIS < 15 (0-50); LDL Cholesterol Calculated 107 mg/dL (<100); Potassium 4.5 mmol/L (3.4-5.1); Sodium 139 mmol/L (137-145); Total Protein 6.5 g/dL (6.3-8.2); Triglycerides 129 mg/dL (35-150)
[2023-10-29 09:37] LABS: TSH w/ Reflex to FT4 1.86 uIU/mL (0.47-4.68)
[2023-10-30 05:03] LABS: Apolipoprotein B 92 mg/dL (<90)
== END ==
PROVIDERS: PCP Family Medicine; Referring Provider Family Medicine; Visit Provider Family Medicine
DX: I10 Essential (primary) hypertension (principal); D69.6 Thrombocytopenia, unspecified; E78.2 Mixed hyperlipidemia
CPT/HCPCS: 36415; 80053; 80061; 82172; 83036; 84443; 85025

== ENCOUNTER → 2024-10-21 07:41 | Outpatient (CLI) | payer OTHER, SELFPAY ==
[2024-10-21 09:02] LABS: Creatinine Urine Random 137.27 mg/dL
[2024-10-21 09:03] LABS: Cholesterol 202 mg/dL (140-199); HDL Cholesterol 46 mg/dL (40-60); LDL Cholesterol Calculated 137 mg/dL (<100); Triglycerides 97 mg/dL (35-150)
[2024-10-21 09:06] LABS: Microalbumin Urine Random 1.3 mg/dL (0-1.6)
[2024-10-21 09:32] LABS: Prostate Specific Antigen Scrn 1.62 ng/mL (0.1-4.0)
[2024-10-21 23:08] LABS: Apolipoprotein B 96 mg/dL (<90)
== END ==
PROVIDERS: PCP Family Medicine; Referring Provider Family Medicine; Visit Provider Family Medicine
DX: I10 Essential (primary) hypertension (principal); E78.5 Hyperlipidemia, unspecified; E78.2 Mixed hyperlipidemia; N40.0 Benign prostatic hyperplasia without lower urinary tract symptoms; D69.6 Thrombocytopenia, unspecified; Z12.5 Encounter for screening for malignant neoplasm of prostate
CPT/HCPCS: 36415; 80061; 82043; 82172; 82570; G0103

== ENCOUNTER → 2025-04-06 15:46 | Outpatient (CLI) | payer OTHER, SELFPAY ==
--- NOTE | 2025-04-06 15:49 | DI.RAD.S_ITS ---
PROCEDURE: XR KNEE LT 3V INDICATIONS: left knee pain TECHNIQUE: 3 views of the knee were acquired. COMPARISON: None. FINDINGS: Bones: No fractures or dislocations. No suspicious bony lesions. Minimal degenerative disease in the patellofemoral compartment. No joint effusion. Soft tissues: No joint effusion. No suspicious soft tissue calcifications. IMPRESSION: Minimal degenerative changes, no focal osseous lesion seen. Dictated by: Arsh Okeefe M.D. on 04/06/2025 at 22:03 Approved by: Arsh Okeefe M.D. on 04/06/2025 at 22:04
== END ==
LOC: RAD 15:49
PROVIDERS: PCP Family Medicine; Referring Provider Family Medicine; Visit Provider Family Medicine
DX: M25.562 Pain in left knee (principal)
CPT/HCPCS: 73562